=== PATIENT | male | born 1985 | race Caucasian/White ===

== ENCOUNTER → 2017-10-17 | Outpatient (CLI) | payer BC ==
--- NOTE | 2017-10-17 11:04 | PCVCIMAG ---
APPROVED REPORT Study performed: 10/17/2017 09:46:26 EXAM: Limited 2D, Doppler, and color-flow Echocardiogram Patient Location: Echo lab Status: routine BSA: 2.00 HR: 67 bpmBP: 118/78 mmHg Rhythm: NSR Other Information Study Quality: Adequate Risk Factors: Cardiac Risk Factors: HTN Indications CAD Cardiomyopathy s/p LAD stent 2D Dimensions LVEF(%): 55.30 (>50%) IVSd: 9.71 (7-11mm) LVDd: 50.11 mm PWd: 10.25 (7-11mm) LVDs: 35.64 (25-40mm) Left Atrium: 38.44 (27-40mm) Aortic Root: 29.87 mm LV Single Plane 4CH: 50.35 % LV Single Plane 2CH: 53.34 %Duran's LVEF: 51.85 % Biplane EF: 51.8 % Aortic Valve AoV Peak Shaheed.: 1.29 m/s AO Peak Gr.: 6.68 mmHgLVOT Max P.09 mmHg LVOT Max V: 1.13 m/s Pulmonary Valve PV Peak Shaheed.: 0.98 m/sPV Peak Gr.: 3.84 mmHg Left Ventricle The left ventricle is normal size. There is normal LV segmental wall motion. There is normal left ventricular wall thickness. The left ventricular ejection fraction is within the lower limits of normal range. LVEF is 50-55%. The left ventricular diastolic function is normal. Right Ventricle The right ventricle is normal size. The right ventricular systolic function is normal. Atria The left atrium size is normal. The right atrium size is normal. Aortic Valve The aortic valve is normal in structure. No aortic regurgitation is present. There is no aortic valvular stenosis. Mitral Valve The mitral valve is normal in structure. Mild mitral regurgitation. No evidence of mitral valve stenosis. Tricuspid Valve The tricuspid valve is normal in structure. There is no tricuspid valve regurgitation noted. Pulmonic Valve The pulmonary valve is normal in structure. Trace pulmonic regurgitation. Great Vessels The aortic root is normal in size. IVC is normal in size and collapses with >50% inspiration Pericardium There is no pericardial effusion. There is no pleural effusion. <Conclusion> The left ventricle is normal size. The left ventricular ejection fraction is within the lower limits of normal range. LVEF is 50-55%. The left ventricular diastolic function is normal. The right ventricle is normal size. The left atrium size is normal. The aortic valve is normal in structure. Mild mitral regurgitation. There is no tricuspid valve regurgitation noted. The aortic root is normal in size. There is no pericardial effusion.
== END | disposition home or self-care (01) ==
LOC: PCVCIMAG 15:49
PROVIDERS: ATTEND Internal Medicine Cardiovascular Disease
DX: I34.0 Nonrheumatic mitral (valve) insufficiency (principal); I10 Essential (primary) hypertension; I25.10 Atherosclerotic heart disease of native coronary artery without angina pectoris
CPT/HCPCS: 93308